=== PATIENT | female | born 1935 | race Caucasian/White ===

== ENCOUNTER → 2016-11-22 | Outpatient (CLI) | payer MEDICARE ==
[~2016-11-22] MED LIST: HYDR1TAB8 PO; blood pressure
--- NOTE | 2016-11-22 09:38 | Diagnostic Imaging Report ---
INDICATION: Screening. TECHNIQUE: Screening digital mammography was performed bilaterally with a Computer Aided Detection (CAD) system. COMPARISON: 11/20/2015, 10/31/2014, and 11/01/2013. FINDINGS: There is a moderate amount of residual fibroglandular tissue bilaterally. There is no dominant mass, spiculated lesion, or suspicious calcification identified. There are vascular calcifications. The skin, nipples, and axillae are unremarkable. IMPRESSION: Benign findings. ACR BI-RADS Category 2: Benign findings. Result letter will be mailed to the patient. Note: At least 10% of breast cancer is not imaged by mammography. Dictated by: Dictated on workstation # [id number]
== END ==
LOC: RAD 07:25
PROVIDERS: ATTEND Internal Medicine
DX: Z12.31 Encounter for screening mammogram for malignant neoplasm of breast (principal)
CPT/HCPCS: 77067

== ENCOUNTER → 2018-11-23 | Outpatient (CLI) | payer OTHER, MEDICARE ==
--- NOTE | 2018-11-24 08:02 | Diagnostic Imaging Report ---
Digital mammogram Bilateral screening with 3-D tomosynthesis and CAD The study was compared to the prior exams of 11/23/2017, and 11/20/2015. At this time there are no current complaints. The current study was also evaluated with a Computer Aided Detection (CAD) system. FINDINGS: The fibroglandular tissue in both breasts is heterogeneously dense. This does limit the sensitivity of this exam. Overall, there does not appear to have been any significant change when compared to the prior study. No primary or secondary sign of malignancy is noted. IMPRESSION: There is no radiographic evidence for malignancy. ACR BI-RADS Category 1: Negative. Result letter will be mailed to the patient. Note: At least 10% of breast cancer is not imaged by mammography. Dictated by: Dictated on workstation # [id number]
== END ==
LOC: RAD 09:17
PROVIDERS: ATTEND Internal Medicine
DX: Z12.31 Encounter for screening mammogram for malignant neoplasm of breast (principal)
CPT/HCPCS: 77067

== ENCOUNTER → 2019-12-11 | Outpatient (CLI) | payer OTHER, MEDICARE ==
--- NOTE | 2019-12-11 15:33 | Diagnostic Imaging Report ---
INDICATION: Routine screening. COMPARISON: 11/23/2018 and 11/23/2017. TECHNIQUE: 2D and 3D bilateral screening mammography was performed with CAD. FINDINGS: Both breasts are heterogeneously dense, limiting the sensitivity of mammography. No dominant mass or malignant appearing microcalcifications are seen. The axillae are unremarkable. IMPRESSION: No mammographic features suspicious for malignancy are identified. ACR BI-RADS Category 1: Negative. Result letter will be mailed to the patient. Note: At least 10% of breast cancer is not imaged by mammography. Dictated by: Dictated on workstation # [id number]
== END ==
LOC: RAD 10:50
PROVIDERS: ATTEND Internal Medicine
DX: Z12.31 Encounter for screening mammogram for malignant neoplasm of breast (principal)
CPT/HCPCS: 77063; 77067

== ENCOUNTER → 2020-12-31 | Outpatient (CLI) | payer OTHER, MEDICARE ==
--- NOTE | 2020-12-31 11:52 | Diagnostic Imaging Report ---
INDICATION: Routine screening. Comparison is made with prior mammogram 12/11/2019 and 11/23/2018. 2-D and 3-D bilateral screening mammography was performed with CAD. Both breast are heterogeneously dense, limiting the sensitivity of mammography. No mass or malignant-appearing microcalcifications are seen. Axillae are unremarkable. IMPRESSION: No mammographic features suspicious for malignancy are identified. BI-RADS Category 1 ACR BI-RADS Category 1: Negative. Result letter will be mailed to the patient. Note: At least 10% of breast cancer is not imaged by mammography. Dictated by: Dictated on workstation # [id number]
== END ==
LOC: RAD 08:29
PROVIDERS: ATTEND Nurse Practitioner Family
DX: Z12.31 Encounter for screening mammogram for malignant neoplasm of breast (principal)
CPT/HCPCS: 77063; 77067

== ENCOUNTER → 2021-07-01 | Outpatient (CLI) | payer OTHER, MEDICARE | LOC: CARD 14:31 | PROVIDERS: ATTEND Nurse Practitioner Family | DX: R07.9 Chest pain, unspecified (principal) | CPT/HCPCS: 93005 ==

== ENCOUNTER 2022-09-24 11:18 | Observation (INO) | payer OTHER, MEDICARE ==
[~2022-09-24] VITALS: Ht 160 cm; Wt 58.0 kg
[2022-09-24] MEDS ORDERED: NS IV 500 ML 500 ML IV ONE (11:45)
[2022-09-24 11:48] LABS: BASOPHILS % (AUTO) 1 % (0-10); EOSINOPHILS # (AUTO) 0.2 10^3/uL (0.0-0.3); EOSINOPHILS % (AUTO) 3 % (0-10); HEMATOCRIT 36 % (35-52); HEMOGLOBIN 12.2 g/dL (11.5-16.0); LYMPHOCYTES # (AUTO) 1.5 10^3/uL (1.0-4.0); LYMPHOCYTES % (AUTO) 31 % (12-44); MEAN CORPUSCULAR HEMOGLOBIN 28 pg (25-34); MEAN CORPUSCULAR HGB CONC 34 g/dL (32-36); MEAN CORPUSCULAR VOLUME 83 fL (80-99); MEAN PLATELET VOLUME 9.5 fL (9.0-12.2); MONOCYTES # (AUTO) 0.4 10^3/uL (0.0-1.0); MONOCYTES % (AUTO) 9 % (0-12); NEUTROPHILS # (AUTO) 2.7 10^3/uL (1.8-7.8); NEUTROPHILS % (AUTO) 56 % (42-75); PLATELET COUNT 228 10^3/uL (130-400); WHITE BLOOD COUNT 4.8 10^3/uL (4.3-11.0)
--- NOTE | 2022-09-24 11:56 | Diagnostic Imaging Report ---
Indication: Bradycardia and dizziness. No priors. Findings: The heart size and configuration within normal limits. 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 The mid lungs themselves clear. No edema, pneumonia, effusion or pneumothorax. Impression: No acute-appearing cardiopulmonary abnormality. Dictated by: Dictated on workstation # [id number]
[2022-09-24 11:57] LABS: ALBUMIN 4.1 GM/DL (3.2-4.5); CHLORIDE 107 MMOL/L (98-107); POTASSIUM 3.6 MMOL/L (3.6-5.0)
[2022-09-24 11:58] LABS: SODIUM 141 MMOL/L (135-145)
[2022-09-24 12:00] LABS: GLUCOSE 113 MG/DL (70-105); TOTAL PROTEIN 6.7 GM/DL (6.4-8.2)
[2022-09-24 12:01] LABS: CARBON DIOXIDE 21 MMOL/L (21-32)
--- NOTE | 2022-09-24 12:01 | ED Cardiac General ---
History of Present Illness General Chief Complaint: Cardiac/General Problems Stated Complaint: EKG REQUESTED | ABNORMAL RHYTHM Nursing Triage Note: PT AMBULATE TO ROOM 09 WITHOUT DIFFICULTY WITH C/O BRADYCARDIA. PT STATES SHE WAS WORKING BECAME DIZZY AND DIDN'T FEEL WELL SO A NURSE COWORKER CHECKED VITAL SIGNS AND PT'S PULSE WAS IN THE 20S. PT CONTACTED PCP AND WAS TOLD TO COME TO ED. Source: patient Exam Limitations: no limitations History of Present Illness Date Seen by Provider: Sep 24, 2022 Time Seen by Provider: 11:25 Initial Comments Here from Dr. Cgae's office with report of low heart rate. Patient states that she came to work this morning and apparently was dizzy and was noted to be pale. They checked her heart rate and apparently it was in the 20s. She decided to go to her doctor's office and went there and her heart rate was in the 40s and they referred her back to the emergency department due to concerns of low heart rate with symptoms and need for further evaluation. 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 She is interactive well today but does admit to the dizziness and low heart rate. Denies chest pain, breathing problems, nausea, vomiting, fever or upper respiratory symptoms. She is on beta-lupe for hypertension and did take that this morning. She has not had problems with this previously. Patient appears to be on irbesartan and hydrochlorothiazide and no findings of beta-lupe on med reconciliation. Timing/Duration: 1-3 hours, changing over time Severity: moderate Prior CP/Workup: no prior chest pain NTG SL [employer] DYNAM[employer] MANAGER ARCHITECT: No ASA po [employer] MANAGER ARCHITECT: No Associated Systoms: No Chest Pain, No Cough, No Fever/Chills, No Tanner sea/Vomiting, No Shortness of Air, No Weakness Allergies and Home Medications Allergies Coded Allergies: No Known Drug Allergies (Unverified , 03/10/10) Patient Home Medication List Home Medication List Reviewed: Yes Hydrocodone Bit/Ibuprofen (Vicoprofen 200-7.5 Mg Tab) 1 Each Tablet, 1 EACH PO Q6HR PRN Prescribed by: CHAKA HINSON on 11/05/12 1206 [blood pressure] , (Reported) Entered as Reported by: MARY NICE on 11/05/12 1055 Review of Systems Review of Systems Constitutional: see HPI; No chills, No fever EENTM: No Symptoms Reported Respiratory: Denies Cough, Denies Shortness of Air Cardiovascular: Denies Chest Pain, Denies Edema; Irregular Heart Rate Gastrointestinal: Denies Abdominal Pain, Denies Nausea Genitourinary: No Symptoms Reported Musculoskeletal: no symptoms reported Psychiatric/Neurological: See HPI, Other (Dizziness) Past Vnybcyn-Kboetg-Bwpdhn Hx Patient Social History Tobacco Use?: No Smoking Status: Never a Smoker Smokeless Tobacco Frequency: Never a User Use of E-Cig and/or Vaping dev: No Use of E-Cig and/or Vaping Gustavo: Never a User Substance use?: No Alcohol Use?: Yes Alcohol Frequency: Once in a while Pt feels they are or have been: No Past Medical History Surgeries: Yes Eye Surgery Respiratory: No Cardiac: Yes Hypertension Genitourinary: Yes Kidney Stones Family Medical History Reviewed Nursing Family Hx Heart Disease Physical Exam Vital Signs Vital Signs - First Documented 09/24/22 11:24 Temp 36.8 Pulse 58 Resp 16 B/P (MAP) 147/52 (83) O2 Delivery Room Air Capillary Refill : Less Than 3 Seconds Height, Weight, BMI Height: '" Weight: 138lbs. oz. 62.573654nx; 22.00 BMI Method:Stated General Appearance: No Apparent Distress, WD/WN HEENT: PERRL/EOMI, Pharynx Normal Neck: Non Tender, Supple Respiratory: Lungs Clear, Normal Breath Sounds Cardiovascular: No Murmur, Bradycardia Gastrointestinal: Non Tender, Soft Extremity: Normal Range of Motion, Non Tender Neurologic/Psychiatric: Alert, Oriented x3 Skin: Normal Color, Warm/Dry Progress/Results/Core Measures Results/Orders Lab Results Laboratory Tests Test 09/24/22 11:40 Range/Units White Blood Count 4.8 4.3-11.0 10^3/uL Red Blood Count 4.39 3.80-5.11 10^6/uL Hemoglobin 12.2 11.5-16.0 g/dL Hematocrit 36 35-52 % Mean Corpuscular Volume 83 80-99 fL Mean Corpuscular Hemoglobin 28 25-34 pg Mean Corpuscular Hemoglobin Concent 34 32-36 g/dL Red Cell Distribution Width 13.6 10.0-14.5 % Platelet Count 228 130-400 10^3/uL Mean Platelet Volume 9.5 9.0-12.2 fL Immature Granulocyte % (Auto) 0 % Neutrophils (%) (Auto) 56 42-75 % Lymphocytes (%) (Auto) 31 12-44 % Monocytes (%) (Auto) 9 0-12 % Eosinophils (%) (Auto) 3 0-10 % Basophils (%) (Auto) 1 0-10 % Neutrophils # (Auto) 2.7 1.8-7.8 10^3/uL Lymphocytes # (Auto) 1.5 1.0-4.0 10^3/uL Monocytes # (Auto) 0.4 0.0-1.0 10^3/uL Eosinophils # (Auto) 0.2 0.0-0.3 10^3/uL Basophils # (Auto) 0.0 0.0-0.1 10^3/uL Immature Granulocyte # (Auto) 0.0 0.0-0.1 10^3/uL Sodium Level 141 135-145 MMOL/L Potassium Level 3.6 3.6-5.0 MMOL/L Chloride Level 107 98-107 MMOL/L Carbon Dioxide Level 21 21-32 MMOL/L Anion Gap 13 5-14 MMOL/L Blood Urea Nitrogen 37 H 7-18 MG/DL Creatinine 2.28 H 0.60-1.30 MG/DL Estimat Glomerular Filtration Rate 21 BUN/Creatinine Ratio 16 Glucose Level 113 H 70-105 MG/DL Calcium Level 10.0 8.5-10.1 MG/DL Corrected Calcium 9.9 8.5-10.1 MG/DL Magnesium Level 1.8 1.6-2.4 MG/DL Total Bilirubin 0.5 0.1-1.0 MG/DL Aspartate Amino Transf (AST/SGOT) 12 5-34 U/L Alanine Aminotransferase (ALT/SGPT) 12 0-55 U/L Alkaline Phosphatase 147 H 40-136 U/L Troponin I < 0.028 <0.028 NG/ML Total Protein 6.7 6.4-8.2 GM/DL Albumin 4.1 3.2-4.5 GM/DL TSH [place] Testing 1.47 0.35-4.94 UIU/ML My Orders Orders - ARGENTINA DOWNS MD Ekg Tracing (09/24/22 11:23) Cbc With Automated Diff (09/24/22 11:35) Comprehensive Metabolic Panel (09/24/22 11:35) Magnesium (09/24/22 11:35) Thyroid Analyzer (09/24/22 11:35) Troponin I [place] (09/24/22 11:35) Ed Iv/Invasive Line Start (09/24/22 11:35) Monitor-Rhythm Ecg Trace Only (09/24/22 11:35) Ns Iv 500 Ml (Sodium Chloride 0.9%) (09/24/22 11:45) Chest 1 View, Ap/Pa Only (09/24/22 11:35) Code/Resuscitation (09/24/22 13:22) Ed Admission (Communication) (09/24/22 13:22) Medications Given in ED Current Medications Medications Dose Ordered Sig/Dagoberto Route Start Time Stop Time Status Last Admin Dose Admin Sodium Chloride 500 ml @ 0 mls/hr Q0M ONCE IV 09/24/22 11:45 09/24/22 11:46 DC 09/24/22 11:44 500 MLS/HR Vital Signs/I&O 09/24/22 11:24 Temp 36.8 Pulse 58 Resp 16 B/P (MAP) 147/52 (83) O2 Delivery Room Air Blood Pressure Mean: 83 Progress Progress Note : Progress Note Seen and evaluated. IV, labs including CBC, CMP, troponin, thyroid study and magnesium ordered. EKG and chest x-ray ordered. Monitor patient. Differential diagnosis includes electrolyte abnormality, hormone dysfunction, cardiac arrhythmia, cardiac event 1216: Labs reviewed and CBC grossly normal. Chemistry shows creatinine of 2.28 and there is no historical reference for her. Otherwise chemistries are negative and troponin is negative. TSH is pending. Chest x-ray reviewed by me shows question of cardiomegaly without infiltrate or edema on my interpretation. I did speak with Dr. Cage, patient's primary care physician. While he was unable to look at the computer because of his location to determine if this is chronic, he does not remember the patient having any renal dysfunction previously. He does verify the irbesartan for hypertension as well as hydrochlorothiazide. Patient resting peacefully without distress and heart rate has been as low as 40 here. Monitor patient. 1252: I did discuss the case with Dr. Hidalgo, animal park code enforcement officer on-call and he will see the patient in the ER. 1315: Dr. Hidalgo has seen the patient and is recommending observation admission. I have already discussed the case with Dr. Bennett and she accepts patient for admission, observation status. 1325: I have verified CODE STATUS with the patient and she wishes to be full code. Findings concerns discussed with patient and family who agree. Initial ECG Impression Date: Sep 24, 2022 Initial ECG Impression Time: 11:28 Initial ECG Rate: 45 Initial ECG Rhythm: S.Gustavo Comment Sinus bradycardia with normal axis. LVH noted. No evidence of ST elevation KS. Interpreted by me. Diagnostic Imaging Diagonstic Imaging: Xray Plain Films/CT/US/NM/MRI: chest Comments [facility] [place], [place] NAME: RADHA PEREZ [facility] REC#: [id number] PT STATUS: REG ER : 1935 PHYSICIAN: ARGENTINA DOWNS MD ADMIT DATE: 09/24/22/ER Draft Date of Exam:09/24/22 CHEST 1 VIEW, AP/PA ONLY Indication: Bradycardia and dizziness. No priors. Findings: The heart size and configuration within normal limits. 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 The mid lungs themselves clear. No edema, pneumonia, effusion or pneumothorax. Impression: No acute-appearing cardiopulmonary abnormality. Dictated on workstation # [id number] Dict: 09/24/22 1153 Trans: 09/24/22 1156 CVB [id number] Interpreted by: RAMU BOONE Electronically signed by: Departure Communication (Admissions) Time/Spoke to Admitting Phy: 12:52 Time/Spoke to Consulting Phy: 12:52 Impression Primary Impression: Symptomatic bradycardia Disposition: ADMITTED INPATIENT Condition: Stable Admissions Decision to Admit Reason: Admit from ER (General) Decision to Admit/Date: Sep 24, 2022 Time/Decision to Admit Time: 13:15 Departure-Patient Inst. Referrals: OBINNA CAGE MD (PCP/Family) Primary Care Physician ARGENTINA DOWNS MD Sep 24, 2022 12:01
[2022-09-24 12:02] LABS: BILIRUBIN,TOTAL 0.5 MG/DL (0.1-1.0)
[2022-09-24 12:03] LABS: ALKALINE PHOSPHATASE 147 U/L (40-136); CREATININE SERUM 2.28 MG/DL (0.60-1.30); GFR ESTIMATED 21
[2022-09-24 12:04] LABS: BUN/CREATININE RATIO 16
[2022-09-24 12:06] LABS: ALANINE AMINOTRANSFERASE 12 U/L (0-55)
[2022-09-24 12:07] LABS: MAGNESIUM 1.8 MG/DL (1.6-2.4)
[2022-09-24 12:27] LABS: TSH (THYROID ANALYZER) 1.47 UIU/ML (0.35-4.94)
[2022-09-24 13:38] VITALS: BP 165/84
[2022-09-24] MEDS ORDERED: CALCIUM CARBONATE 500 MG (TUMS) TAB.CHEW PO PRN (13:45)
[2022-09-24] MEDS ORDERED: MELATONIN 3 MG TABLET PO PRN (13:45)
[2022-09-24] MEDS ORDERED: BISACODYL 10 MG SUPP (DULCOLAX) PR PRN (13:45)
[2022-09-24] MEDS ORDERED: ONDANSETRON 4 MG/2 ML (SDV) Z0FRAN IV PRN (13:45)
[2022-09-24] MEDS ORDERED: polyethylene glycoL POWDER 17 GM (MIRALAX) PACK PO PRN (13:45)
[2022-09-24] MEDS ORDERED: ANTACID SUSP 30 ML UDC (MYLANTA) PO PRN (13:45)
--- NOTE | 2022-09-24 14:01 | Physical Therapy Progress Note ---
Therapy Progress Note Patient declined skilled PT and is currently at independent PLOF with all gross motor skills and does not require skilled PT intervention at this time. RN present and confirms. ADAIR ROBERTO PT Sep 24, 2022 14:01
[2022-09-24 15:07] VITALS: BP 165/84
--- NOTE | 2022-09-24 15:18 | History & Physical-Hospitalist ---
History of Present Illness HPI/Chief Complaint Patient is an 87-year-old female with past medical history of hypertension who presented to the emergency department due to bradycardia. 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 I had nurse checked her vitals and found that her heart rate was in the 20s. They recommended that she go to the emergency department but she went to her primary care office instead. They are her heart rate remained low but was in the 40s and they again referred her to the emergency department. On arrival to the emergency department she has consistently had a heart rate in the 40s and 50s which she says is quite abnormal for her. She does take 2 blood pressure medications but is on no rate controlling medicines. She did take her blood pressure medicines this morning. After conversation with patient and family decision was made to admit for observation and evaluation for possible pacemaker need. Pt denies any symptoms at this time and is feeling well now. Source: patient, family Date Seen 09/24/22 Time Seen by a Provider: 15:18 Attending Physician Abdoul Cage MD PCP Admitting Physician: Maria Elena Bennett MD Attending Physician: Maria Elena Bennett MD Referring Physician Date of Admission Sep 24, 2022 at 13:35 Home Medications & Allergies Home Medications Reviewed patient Home Medication Reconciliation performed by pharmacy medication reconciliations senior games technician and/or nursing. Patients Allergies have been reviewed. Allergies Allergies Coded Allergies No Known Drug Allergies (Bgunfkjglb50/14/10) Past Wjajrck-Kelsrd-Qbwbmb Hx Patient Social History Employed/Student: employed Tobacco Use?: No Smoking Status: Never a Smoker Smokeless Tobacco Frequency: Never a User Use of E-Cig and/or Vaping dev: No Use of E-Cig and/or Vaping Gustavo: Never a User Substance use?: No Alcohol Use?: No Alcohol Frequency: Once in a while Pt feels they are or have been: No Immunizations Up To Date Date of Pneumonia Vaccine: Oct 26, 2009 Current Status Advance Directives: No Communicates: Verbally Primary Language: Nepalese Preferred Spoken Language: Nepalese Is interpretation needed?: No Sensory deficits: Vision impairment Implanted or Applied Medical D: None Past Medical History Surgeries: Eye Surgery Hypertension Kidney Stones Family Medical History Reviewed Nursing Family Hx Heart Disease Review of Systems Constitutional: see HPI Physical Exam Physical Exam Vital Signs Vital Signs - First Documented 09/24/22 09/24/22 11:24 13:30 Temp 36.8 Pulse 58 Resp 16 B/P (MAP) 147/52 (83) Pulse Ox 97 O2 Delivery Room Air Capillary Refill : Less Than 3 Seconds Height, Weight, BMI Height: '" Weight: 138lbs. oz. 62.377664zf; 22.65 BMI Method:Stated General Appearance: No Apparent Distress, WD/WN Respiratory: Lungs Clear, No Respiratory Distress Cardiovascular: No Murmur, Bradycardia Gastrointestinal: Normal Bowel Sounds, Non Tender, Soft Neurologic/Psychiatric: Alert, Oriented x3 Results Results/Procedures Labs Laboratory Tests 09/24/22 11:40 Patient resulted labs reviewed. Imaging: Reviewed Imaging Report Imaging [facility], [place] NAME: RADHA PEREZ [facility] REC#: [id number] PT STATUS: REG ER : 1935 PHYSICIAN: ARGENTINA DOWNS MD ADMIT DATE: 09/24/22/ER Draft Date of Exam:09/24/22 CHEST 1 VIEW, AP/PA ONLY Indication: Bradycardia and dizziness. No priors. Findings: The heart size and configuration within normal limits. 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 The mid lungs themselves clear. No edema, pneumonia, effusion or pneumothorax. Impression: No acute-appearing cardiopulmonary abnormality. Dictated on workstation # [id number] Dict: 09/24/22 1153 Trans: 09/24/22 1156 CVB [id number] Interpreted by: RAMU BOONE Electronically signed by: Assessment/Plan Admission Diagnosis Bradycardia Admission Status: Observation Assessment and Plan Bradycardia HTN New onset bradycardia Telemetry Cardiology consulted, appreciate recs Not on any rate controlling meds ARMANDO Creatinine elevated No baseline available but per report not history of ARMANDO Continue IVF DVT ppx: Ambulation Diagnosis/Problems Diagnosis/Problems (1) ARMANDO (acute kidney injury) (2) Hypertension (3) Symptomatic bradycardia Clinical Quality Measures AMI/AHF: ASA po Prior to arrival: MARIA ELENA Santana MD Sep 24, 2022 15:18
--- NOTE | 2022-09-24 15:19 | Consultation-Cardiology ---
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 This morning she was dizzy, weak and noted to be pale. She states that her heart rate was checked and noted to be in the 20s this morning, but this cannot be confirmed. She subsequently decided to go to her doctor's office and went there and her heart rate was in the 40s and they referred her back to the emergency department for further evaluation. In the emergency room her rates initially were at 40/min, with sinus bradycardia documented on telemetry. Her EKG upon arrival has been reviewed by me and shows sinus bradycardia at 45 bpm, with unremarkable QRS complexes, no first-degree AV block or ST or T wave abnormalities. She specifically denies shortness of breath, or anginal chest pain. Patient is on irbesartan and hydrochlorothiazide for hypertension at home. She appears not to be on any negative chronotropic drug including beta-blockers or calcium channel blockers at home. I have called inpatient pharmacy and they to have found no evidence of beta-blockers or calcium channel blockers on her home medication list No nausea vomiting syncope dyspnea or chest pain consistent with anginal chest pain Family history unremarkable except for 2 sisters who needed permanent pacemakers versus ICDs in their mid to late 80s Review of Systems-Cardiology All Other Systems Reviewed Negative Unless Noted: Yes INF-Fvzooa-Zkxrzt Hx Patient Social History Smoking Status: Never a Smoker Alcohol Use?: No Pt feels they are or have been: No Immunizations Up To Date Date of Pneumonia Vaccine: Oct 26, 2009 Past Medical History PMH As described under Assessment. Allergies and Home Medications Allergies Coded Allergies: No Known Drug Allergies (Unverified , 03/10/10) Patient Home Medication List Home Medication List Reviewed: Yes Hydrocodone Bit/Ibuprofen (Vicoprofen 200-7.5 Mg Tab) 1 Each Tablet, 1 EACH PO Q6HR PRN Prescribed by: CHAKA HINSON on 11/05/12 1206 [blood pressure] , (Reported) Entered as Reported by: MARY NICE on 11/05/12 1055 Exam Vital Signs Vital Signs Date Time Temp Pulse Resp B/P (MAP) Pulse Ox O2 Delivery O2 Flow Rate FiO2 09/24/22 15:29 37 09/24/22 15:07 36.6 95 09/24/22 13:38 18 165/84 (111) Room Air Physical Exam Comfortable and asymptomatic at the time of my examination Chest clear to auscultation S1 and S2 regular. No murmur S3 or S4 No jugular venous distention No lower extremity edema Neurological examination nonfocal Labs Laboratory Tests Test 09/24/22 11:40 Range/Units White Blood Count 4.8 4.3-11.0 10^3/uL Red Blood Count 4.39 3.80-5.11 10^6/uL Hemoglobin 12.2 11.5-16.0 g/dL Hematocrit 36 35-52 % Mean Corpuscular Volume 83 80-99 fL Mean Corpuscular Hemoglobin 28 25-34 pg Mean Corpuscular Hemoglobin Concent 34 32-36 g/dL Red Cell Distribution Width 13.6 10.0-14.5 % Platelet Count 228 130-400 10^3/uL Mean Platelet Volume 9.5 9.0-12.2 fL Immature Granulocyte % (Auto) 0 % Neutrophils (%) (Auto) 56 42-75 % Lymphocytes (%) (Auto) 31 12-44 % Monocytes (%) (Auto) 9 0-12 % Eosinophils (%) (Auto) 3 0-10 % Basophils (%) (Auto) 1 0-10 % Neutrophils # (Auto) 2.7 1.8-7.8 10^3/uL Lymphocytes # (Auto) 1.5 1.0-4.0 10^3/uL Monocytes # (Auto) 0.4 0.0-1.0 10^3/uL Eosinophils # (Auto) 0.2 0.0-0.3 10^3/uL Basophils # (Auto) 0.0 0.0-0.1 10^3/uL Immature Granulocyte # (Auto) 0.0 0.0-0.1 10^3/uL Sodium Level 141 135-145 MMOL/L Potassium Level 3.6 3.6-5.0 MMOL/L Chloride Level 107 98-107 MMOL/L Carbon Dioxide Level 21 21-32 MMOL/L Anion Gap 13 5-14 MMOL/L Blood Urea Nitrogen 37 H 7-18 MG/DL Creatinine 2.28 H 0.60-1.30 MG/DL Estimat Glomerular Filtration Rate 21 BUN/Creatinine Ratio 16 Glucose Level 113 H 70-105 MG/DL Calcium Level 10.0 8.5-10.1 MG/DL Corrected Calcium 9.9 8.5-10.1 MG/DL Magnesium Level 1.8 1.6-2.4 MG/DL Total Bilirubin 0.5 0.1-1.0 MG/DL Aspartate Amino Transf (AST/SGOT) 12 5-34 U/L Alanine Aminotransferase (ALT/SGPT) 12 0-55 U/L Alkaline Phosphatase 147 H 40-136 U/L Troponin I < 0.028 <0.028 NG/ML Total Protein 6.7 6.4-8.2 GM/DL Albumin 4.1 3.2-4.5 GM/DL TSH [place] Testing 1.47 0.35-4.94 UIU/ML Radiology Chest x-ray self reviewed. Normal cardiopulmonary silhouette as per my interpretation EKG self reviewed. As described above. Sinus bradycardia without evidence of AV block or QRS prolongation Telemetry. Sinus bradycardia. Intermittently, frequent premature atrial contractions noted ECG Impression ECG Initial ECG Impression Date: Sep 24, 2022 A/P-Cardiology Assessment/Admission Diagnosis 1. Symptomatic sinus bradycardia with weakness/dizziness. TSH normal. Plan overnight observation and transthoracic echocardiography. If bradycardia persists, patient will need dual-chamber permanent pacemaker 2. Hypertension. Controlled. Patient is on irbesartan and hydrochlorothiazide at home. Not on any negative chronotropic agents as per my assessment ALF PARADA MD Sep 24, 2022 15:19
[2022-09-24] MEDS: NS IV 1000 ML 1,000 ML IV SCH (15:25)
[2022-09-24] MEDS ORDERED: IBUP-2185 PO (15:48)
[2022-09-24] MEDS ORDERED: IRBE150T23 PO (15:48)
[2022-09-24] MEDS ORDERED: HYDR25TA4 PO (15:48)
[2022-09-24 16:57] VITALS: BP 128/54
[2022-09-24 19:23] VITALS: BP 130/63
[2022-09-24] MEDS: RT-ALBUTEROL SULF 2.5 MG/3 ML PRE-MIX VIAL INH SCH ×2 (20:06→21:36)
[2022-09-24 23:12] VITALS: BP 115/43
[2022-09-25] MEDS: NS IV 1000 ML 1,000 ML IV SCH ×2 (00:30→10:03)
[2022-09-25 03:55] VITALS: BP 129/46
[2022-09-25 05:39] LABS: HEMATOCRIT 33 % (35-52); HEMOGLOBIN 10.7 g/dL (11.5-16.0); MEAN CORPUSCULAR HEMOGLOBIN 27 pg (25-34); MEAN CORPUSCULAR HGB CONC 33 g/dL (32-36); MEAN CORPUSCULAR VOLUME 82 fL (80-99); MEAN PLATELET VOLUME 9.7 fL (9.0-12.2); PLATELET COUNT 166 10^3/uL (130-400); WHITE BLOOD COUNT 3.4 10^3/uL (4.3-11.0)
[2022-09-25 05:48] LABS: CALCIUM 9.3 MG/DL (8.5-10.1)
[2022-09-25 05:52] LABS: CREATININE SERUM 1.91 MG/DL (0.60-1.30)
[2022-09-25] MEDS: RT-ALBUTEROL SULF 2.5 MG/3 ML PRE-MIX VIAL INH SCH (07:08)
[2022-09-25 08:03] VITALS: BP 122/54
[2022-09-25] MEDS ORDERED: RT-ALBUTEROL SULF 2.5 MG/3 ML PRE-MIX VIAL INH PRN (10:45)
--- NOTE | 2022-09-25 11:48 | Discharge Inst-Simple/Standard ---
Discharge Inst-Standard Discharge Medications New, Converted or Re-Newed RX: Transmitted to Pharmacy Patient Instructions/Follow Up Plan of Care/Instructions/FU: Please continue to take your medications as written. Please follow up with your primary care doctor to follow up this hospital stay. Activity as Tolerated: Yes Discharge Diet: Low Sodium Diet Return to The Hospital For: Chest pain, shortness of breath, fever, weakness, if you feel you are getting worse. MARIA ELENA DENISE MD Sep 25, 2022 11:48
[2022-09-25 12:17] VITALS: BP 120/62
--- NOTE | 2022-09-25 12:17 | Progress Note - Cardiology ---
Cardiology SOAP Progress Note Subjective: No cp or palp or syncope or shortness of breath States had dizziness on the day of admission (no syncope) Denies n/v/d Denies swelling Objective: I&O/Vital Signs 09/25/22 09/25/22 09/25/22 09/25/22 01:00 03:55 07:00 08:00 Temp 36.6 Pulse 63 65 62 Resp 20 B/P (MAP) 129/46 (73) Pulse Ox 94 95 O2 Delivery Room Air Room Air 09/25/22 08:03 Temp 36.4 Pulse 57 Resp 18 B/P (MAP) 122/54 (76) Pulse Ox 95 O2 Delivery Room Air 09/25/22 00:00 Intake Total 200 ml Balance 200 ml Weight (Pounds): 138 Weight (Calculated Kilograms): 62.199392 Constitutional: AAO x 3, well-developed, well-nourished Respiratory: No accessory muscle use; chest expansion is symmetric, chest is bilaterally symmetric, other (good, bilat air entry) Cardiovascular: regular rate-rhythm, S1 and S2, systolic murmur (soft LEOBARDO at card base) Gastrointestional: No tender; soft; No guarding, No rebound; audible bowel sounds Extremities: No clubbing, No cyanosis, No significant edema Neurologic/Psychiatric: oriented x 3, other (moves all limbs equally) Skin: normal color, warm/dry; No cyanosis, No rash on exposed areas, No ulcerations on exposed areas Results/Procedures: Labs Laboratory Tests 09/25/22 04:58: White Blood Count 3.4L, Red Blood Count 3.97, Hemoglobin 10.7L, Hematocrit 33L, Mean Corpuscular Volume 82, Mean Corpuscular Hemoglobin 27, Mean Corpuscular Hemoglobin Concent 33, Red Cell Distribution Width 13.6, Platelet Count 166, Mean Platelet Volume 9.7, Sodium Level 142, Potassium Level 4.0, Chloride Level 114H, Carbon Dioxide Level 19L, Anion Gap 9, Blood Urea Nitrogen 35H, Creatinine 1.91H, Estimat Glomerular Filtration Rate 25, BUN/Creatinine Ratio 18, Glucose Level 94, Calcium Level 9.3 Laboratory Tests 09/24/22 11:40 09/25/22 04:58 A/P: Assessment: Sinus jose daniel w/o syncope Dizziness of unclear etiology (none currently) Hypertension, controlled Renal insuff of undetermined age and etiology - probably has an acute component due to diuretic therapy Tele: sinus jose daniel or low normal heart rate; heart rate in the mid thirties to the mid forties during sleep; brief Wenckebach during sleep Plan: * No distinct indication for pacemaker at this time. She wishes to go home * Echo today * Zio AT patch * Close outpatient f/u * Advised to return to ER for recurrence of symptoms or new symptoms * Discontinue diuretics Clinical Quality Measures AMI/AHF: ASA po Prior to arrival: LOYAD aSlinas MD FACP FAC CCDS Sep 25, 2022 12:17
[2022-09-25 13:00] VITALS: BP 120/62
--- NOTE | 2022-09-25 13:10 | Discharge Summary ---
Diagnosis/Chief Complaint Date of Admission Sep 24, 2022 at 13:35 Date of Discharge Discharge Date: Sep 25, 2022 Admission Diagnosis Bradycardia Primary Care Obinna Nicolas MD Discharge Diagnosis (1) ARMANDO (acute kidney injury) (2) Hypertension (3) Symptomatic bradycardia Discharge Summary Discharge Physical Exam Allergies: Coded Allergies: No Known Drug Allergies (Unverified , 09/25/22) Vitals & I&Os Vital Signs Date Time Temp Pulse Resp B/P (MAP) Pulse Ox O2 Delivery O2 Flow Rate FiO2 09/25/22 13:00 36.5 60 18 120/62 97 Room Air General Appearance: No Apparent Distress, WD/WN Cardiovascular: Regular Rate, Rhythm, No Murmur Neurologic/Psychiatric: Alert, Oriented x3 Hospital Course She was admitted to the hospital secondary to bradycardia. She was monitored overnight on telemetry and cardiology was consulted. Echo was done which revealed an EF of 65 to 70%. Heart rate improved to the 50s and 60s and patient was asymptomatic with this. Cardiology placed a Zio patch and recommended close outpatient follow-up. Patient also indicated for hydration practices and was encouraged to drink more water as she did have an elevated creatinine on arrival as well. He was discharged home to follow-up with cardiology as stated above and with her primary care physician Dr. Nicolas. I did stop her hydrochlorothiazide on this admission. Labs (last 24 hrs) Patient resulted labs reviewed. Imaging: Reviewed Imaging Report Discussion & Recommendations Discharge Planning: >30 minutes discharge planning Discharge Home Medications: Active Scripts Active Reported Ibuprofen 200 Mg Capsule 400 Mg PO Q8H PRN Irbesartan 150 Mg Tablet 150 Mg PO DAILY Instructions to patient/family Please see electronic discharge instructions given to patient. Clinical Quality Measures AMI/AHF: ASA po Prior to arrival: No Copy Copies To 1: OBINNA NICOLAS MD, KATELYN M MD Sep 25, 2022 13:10
== END 2022-09-25 13:00 | disposition home or self-care (01) ==
LOC: EDUNIT# 11:18 → ER 11:22 → 4TH 13:35
PROVIDERS: ADMIT Family Medicine; ATTEND Family Medicine
DX: N17.9 Acute kidney failure, unspecified (principal); I10 Essential (primary) hypertension; R00.1 Bradycardia, unspecified; R42 Dizziness and giddiness; Z79.899 Other long term (current) drug therapy
CPT/HCPCS: 71045; 80048; 80053; 83735; 84443; 84484; 85025; 85027; 93041; 94640; 99284; C8929; 36415; 93005; 93306; 96361

== ENCOUNTER → 2022-09-25 | Outpatient (CLI) | payer OTHER, MEDICARE ==
[~2022-09-25] MED LIST changes: +AMLO-250 PO; +ASPI-999 PO; +ATOR40TA70 PO; +HYDR25TA4 PO; +IBUP-2185 PO; +IRBE150T23 PO
== END ==
LOC: CARD 13:16
PROVIDERS: ATTEND Internal Medicine Cardiovascular Disease
DX: I47.20 Ventricular tachycardia, unspecified (principal)
CPT/HCPCS: 93246

== ENCOUNTER 2022-11-02 10:40 | Day surgery (SDC) | payer OTHER, MEDICARE ==
[2022-11-02] VITALS (16 sets, daily range): BP systolic 148–193; BP diastolic 59–85
[~2022-11-02] VITALS: Ht 167.6 cm; Wt 56.7 kg
[~2022-11-02 10:40] MED LIST changes: -AMLO-250 PO; -ASPI-999 PO; -ATOR40TA70 PO
[2022-11-02] MEDS ORDERED: LIDOCAINE 1% INJ 20 ML VIAL ONE (10:57)
[2022-11-02] MEDS ORDERED: HEParin (CATH LAB) 2,000 ML IV ONE (10:57)
[2022-11-02] MEDS ORDERED: NS IV 1000 ML 1,000 ML ONE (10:57)
[2022-11-02] MEDS ORDERED: NS IV 1000 ML 1,000 ML IV SCH ×2 (11:00→14:00)
[2022-11-02 11:18] LABS: HEMATOCRIT 38 % (35-52); HEMOGLOBIN 12.7 g/dL (11.5-16.0); MEAN CORPUSCULAR HEMOGLOBIN 28 pg (25-34); MEAN CORPUSCULAR HGB CONC 33 g/dL (32-36); MEAN CORPUSCULAR VOLUME 83 fL (80-99); MEAN PLATELET VOLUME 9.3 fL (9.0-12.2); PLATELET COUNT 188 10^3/uL (130-400); WHITE BLOOD COUNT 3.2 10^3/uL (4.3-11.0)
[2022-11-02] MEDS ORDERED: ATOR40TA70 PO (11:27)
[2022-11-02] MEDS ORDERED: ASPI-999 PO (11:27)
[2022-11-02] MEDS ORDERED: AMLO-250 PO (11:27)
[2022-11-02 11:30] LABS: PROTHROMBIN TIME PATIENT 13.4 SEC (12.2-14.7)
[2022-11-02 11:40] LABS: ALBUMIN 4.2 GM/DL (3.2-4.5); BILIRUBIN,TOTAL 0.8 MG/DL (0.1-1.0); CALCIUM 10.3 MG/DL (8.5-10.1); CREATININE SERUM 1.32 MG/DL (0.60-1.30); POTASSIUM 3.6 MMOL/L (3.6-5.0); TOTAL PROTEIN 6.7 GM/DL (6.4-8.2)
[2022-11-02] MEDS ORDERED: NITRO DRIP 25000 MCG/D5W 250 ML IV ONE (12:45)
[2022-11-02] MEDS ORDERED: fentaNYL INJECTION 100 MCG/2 ML VIAL ONE (12:45)
[2022-11-02] MEDS ORDERED: MIDAZOLAM 5 MG/5 ML (VERSED) VIAL ONE (12:45)
[2022-11-02] MEDS ORDERED: VERAPAMIL 5 MG/2 ML (CALAN) VIAL IV ONE (12:45)
[2022-11-02] MEDS ORDERED: HEParin 1000 UNIT/ML (10ML VIAL) FOR BOLUS ONE (12:46)
--- NOTE | 2022-11-02 13:42 | Cardiac Procedure Note-CS/ASA ---
Pre-Procedure Note Pre-Op Procedure Note Date of Available H&P: Oct 29, 2022 Date H&P Reviewed: Nov 02, 2022 Time H&P Reviewed: 12:15 History & Physical: H&P Reviewed, No changes noted Moderate Sedation PreProcedure ASA Score 3 Airway Lungs Heart ASA score ASA 1: a normal healthy patient ASA 2: a patient with a mild systemic disease (mid diabetes, controlled hypertension, obesity ASA 3: a patient with a severe systemic disease that limits activity (angina, COPD, prior Myocardial infarction) ASA 4: a patient with an incapacitating disease that is a constant threat to life (CHF, renal failure) ASA 5: a moribund patient not expected to survive 24 hrs. (ruptured aneurysm) ASA 6: a declared brain- patient whose organs are being harvested. For emergent operations, add the letter E after the classification Mallampati Classification Grade 1 Sedation Plan Analgesia, Amnesia, Plan communicated to team members The patient is an appropriate candidate to undergo the planned procedure, sedation, and anesthesia. The patient immediately re-assessed prior to indication. LOYDA BORREGO MD FACP FAC CCDS Nov 02, 2022 13:42
--- NOTE | 2022-11-02 13:50 | Cardiac Cath Report ---
CARDIAC CATHETERIZATION DATE OF PROCEDURE: 11-02-22 INDICATION: NSVT HISTORY: The patient is a 87 year old female with NSVT on Zio monitoring PROCEDURES PERFORMED: 1. Cor angio 2. LHC 3. LV angio PROCEDURE DESCRIPTION: After informed consent and in the fasting state, left heart catheterization was performed through the R radial artery utilizing a 6 [place] system by percutaneous approach. Angled J glide wire use to cross R brachiocephalic tortuosity. 6F TIG for LCA. 5F JR4 for RCA. 5F pigtail for LHC and LV angio. All catheters were exchanged over a guidewire. HEMODYNAMICS: LVEDP 18 mmHg. No significant pressure gradient on pullback across the aortic valve CORONARY ANGIOGRAPHY: Left main coronary artery: Ok Left anterior descending coronary artery: 80% prox and 90% mid-vessel; 80% prox D1 Left circumflex coronary artery: Non-dominant with 80% prox and mid-vessel Right coronary artery: 80% prox and 90% mid-vessel LV ANGIOGRAPHY JUSTICE projection: LVEF approx 60%, no wall motion abnormality in this view IMPRESSION: 1. Multivessel CAD (see details above) 2. LVEDP 18 mmHg 3. LVEF 60% PLAN CABG vs high-risk PCI with surgical back up. Spoke with Dr Cates at [facility]. Patient considering options LOYDA BORREGO MD FACP FAC CCDS Nov 02, 2022 13:50
[2022-11-02] MEDS ORDERED: ACETAMINOPHEN 325 MG TABLET PO PRN (14:00)
[2022-11-02] MEDS ORDERED: PATIENT MAY USE OWN MEDS, ALL PO SCH (14:00)
[2022-11-03] MEDS ORDERED: VALSARTAN 80 MG (DIOVAN) TAB PO SCH (09:00)
[2022-11-03] MEDS ORDERED: IRBESARTAN 150 MG TAB PO SCH (09:00)
[2022-11-03] MEDS ORDERED: amLODIPine 5 MG TABLET PO SCH (09:00)
[2022-11-03] MEDS ORDERED: ASPIRIN 81 MG CHEWABLE TABLET PO SCH (09:00)
[2022-11-03] MEDS ORDERED: NON-FORMULARY MEDICATION 1 EA EA (Irbesartan 150 MG) PO SCH (09:00)
== END 2022-11-02 21:00 | disposition critical access hospital (66) ==
LOC: CATH 10:40 → ICU 14:10 → CATH 21:00
PROVIDERS: ATTEND Internal Medicine Cardiovascular Disease
DX: I25.10 Atherosclerotic heart disease of native coronary artery without angina pectoris (principal); I47.1 Supraventricular tachycardia; I49.5 Sick sinus syndrome; N28.9 Disorder of kidney and ureter, unspecified; I47.20 Ventricular tachycardia, unspecified; I12.9 Hypertensive chronic kidney disease with stage 1 through stage 4 chronic kidney disease, or unspecified chronic kidney disease; N18.4 Chronic kidney disease, stage 4 (severe); E78.2 Mixed hyperlipidemia; Z79.82 Long term (current) use of aspirin; Z79.899 Other long term (current) drug therapy
CPT/HCPCS: 80053; 80061; 85027; 85610; 85730; 87081; 93005; 93458; C1769; C1894; 36415

== ENCOUNTER 2022-11-26 22:13 | Emergency (ER) | payer OTHER, MEDICARE ==
[~2022-11-26] VITALS: Ht 160 cm; Wt 54.0 kg
[~2022-11-26 22:13] MED LIST changes: +AMLO-250 PO; +ASPI-999 PO; +ATOR40TA70 PO
[2022-11-26] MEDS ORDERED: hydrALAZINE INJECTION 20 MG/ML VIAL IV STA (22:25)
--- NOTE | 2022-11-26 22:26 | ED Headache ---
General Chief Complaint: Head/Cervical Problems Stated Complaint: HEAD PAIN Source: patient Exam Limitations: no limitations History of Present Illness Date Seen by Provider: Nov 26, 2022 Time Seen by Provider: 22:15 Initial Comments 87-year-old female presents to the emergency department today for severe headache. Symptoms started yesterday as sinus pressure in her left malar region and progressed to a headache. She states is the worst headache she has ever had. She is on prasugrel. On 11/02 she had a heart catheterization showing diffuse coronary artery disease the patient is reportedly considering her options for CABG versus high risk PCI with surgical backup. 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 She denies any fevers chills cough chest pain abdominal pain or changes in bowel or bladder habits. No changes in her vision. No upper or lower extremity weakness numbness or tingling. All other systems reviewed and negative except documented per HPI. Voice recognition software was used to help create this chart Allergies and Home Medications Allergies Coded Allergies: No Known Drug Allergies (Unverified , 09/25/22) Patient Home Medication List Home Medication List Reviewed: Yes Amlodipine Besylate (Amlodipine Besylate) 5 Mg Tablet, 5 MG PO DAILY, (Reported) Entered as Reported by: DANTE AVILA on 11/02/22 1127 Amoxicillin/Potassium Clav (Amox Tr-K Clv 875-125 mg Tab) 875 Mg-125 Mg Tablet, 1 EACH PO BID Prescribed by: DONA GONZALEZ MD on 11/27/22 0041 Aspirin (Aspirin) 81 Mg Tab.chew, 81 MG PO DAILY, (Reported) Entered as Reported by: DANTE AVILA on 11/02/22 1127 Atorvastatin Calcium (Atorvastatin Calcium) 40 Mg Tablet, 40 MG PO DAILY, (Reported) Entered as Reported by: ADNTE AVILA on 11/02/22 1127 Hydrocodone/Acetaminophen (Hydrocodone-Acetamin 5-325 mg) 5 Mg-325 Mg Tablet, 1 TAB PO Q4H PRN for PAIN-MODERATE (5-7) Prescribed by: DONA GONZALEZ MD on 11/27/22 0042 Ibuprofen (Ibuprofen) 200 Mg Capsule, 400 MG PO Q8H PRN for PAIN-MILD (1-4), (Reported) Entered as Reported by: DENIA CHAND on 09/24/22 1548 Irbesartan (Irbesartan) 150 Mg Tablet, 150 MG PO DAILY, (Reported) Entered as Reported by: DENIA CHAND on 09/24/22 1548 Review of Systems Review of Systems Constitutional: see HPI Past Ilwewtg-Ctdgfr-Dlehrr Hx Patient Social History Tobacco Use?: No Use of E-Cig and/or Vaping dev: No Substance use?: No Alcohol Use?: No Past Medical History Surgery/Hospitalization HX: NONE Surgeries: Yes Eye Surgery Respiratory: No Cardiac: Yes Hypertension Genitourinary: Yes Kidney Stones Family Medical History Heart Disease Physical Exam Vital Signs Vital Signs - First Documented 11/26/22 22:17 Temp 36.9 Pulse 87 Resp 18 B/P (MAP) 182/83 (116) Pulse Ox 98 O2 Delivery Room Air Capillary Refill : Height, Weight, BMI Height: '" Weight: 138lbs. oz. 62.337778ye; 20.18 BMI Method:Stated General Appearance: WD/WN, no apparent distress HEENT: PERRL/EOMI, normal ENT inspection, TMs normal, pharynx normal, other (Tenderness palpation left maxillary sinus region. No crepitus. No skin changes.) Neck: non-tender, full range of motion, supple, normal inspection Cardiovascular: regular rate, rhythm, no murmur Respiratory: chest non-tender, lungs clear, normal breath sounds, no respiratory distress, no accessory muscle use Gastrointestinal: normal bowel sounds, non tender, soft Extremities: normal range of motion, non-tender, normal inspection, no pedal edema, normal capillary refill Psychiatric: alert, oriented x 3 Crainal Nerves: normal hearing, normal speech, PERRL Coordination/Gait: normal finger to nose, normal gait Motor/Sensory: no motor deficit, no sensory deficit, no pronator drift Skin: normal color, warm/dry Progress/Results/Core Measures Results/Orders Lab Results Laboratory Tests Test 11/26/22 22:26 Range/Units White Blood Count 5.1 4.3-11.0 10^3/uL Red Blood Count 4.23 3.80-5.11 10^6/uL Hemoglobin 11.6 11.5-16.0 g/dL Hematocrit 35 35-52 % Mean Corpuscular Volume 83 80-99 fL Mean Corpuscular Hemoglobin 27 25-34 pg Mean Corpuscular Hemoglobin Concent 33 32-36 g/dL Red Cell Distribution Width 14.4 10.0-14.5 % Platelet Count 235 130-400 10^3/uL Mean Platelet Volume 8.8 L 9.0-12.2 fL Immature Granulocyte % (Auto) 0 % Neutrophils (%) (Auto) 57 42-75 % Lymphocytes (%) (Auto) 27 12-44 % Monocytes (%) (Auto) 11 0-12 % Eosinophils (%) (Auto) 4 0-10 % Basophils (%) (Auto) 1 0-10 % Neutrophils # (Auto) 2.9 1.8-7.8 10^3/uL Lymphocytes # (Auto) 1.4 1.0-4.0 10^3/uL Monocytes # (Auto) 0.5 0.0-1.0 10^3/uL Eosinophils # (Auto) 0.2 0.0-0.3 10^3/uL Basophils # (Auto) 0.0 0.0-0.1 10^3/uL Immature Granulocyte # (Auto) 0.0 0.0-0.1 10^3/uL Prothrombin Time 13.3 12.2-14.7 SEC INR Comment 1.0 0.8-1.4 Sodium Level 137 135-145 MMOL/L Potassium Level 3.6 3.6-5.0 MMOL/L Chloride Level 105 98-107 MMOL/L Carbon Dioxide Level 20 L 21-32 MMOL/L Anion Gap 12 5-14 MMOL/L Blood Urea Nitrogen 22 H 7-18 MG/DL Creatinine 1.58 H 0.60-1.30 MG/DL Estimat Glomerular Filtration Rate 32 BUN/Creatinine Ratio 14 Glucose Level 147 H 70-105 MG/DL Calcium Level 10.5 H 8.5-10.1 MG/DL My Orders Orders - DONA GONZALEZ DO Iv/Invasive Line Insertion .IV INSERT (11/26/22 22:23) Protime With Inr (11/26/22 22:23) Cbc With Automated Diff (11/26/22 22:23) Basic Metabolic Panel (11/26/22 22:23) Ct Head Wo (11/26/22 22:23) Diphenhydramine Injection (Diphenhydram (11/26/22 22:30) Ketorolac Injection (Ketorolac Injection (11/26/22 22:30) Hydralazine Injection (Hydralazine Injec (11/26/22 22:25) Fentanyl Injection (Fentanyl Injection (11/26/22 23:15) Diphenhydramine Injection (Diphenhydram (11/27/22 00:15) Hydrocodone/Apap 5/325 Tablet (Hydrocod (11/27/22 00:15) Amoxicillin/Clavulanate Tablet (Amoxicil (11/27/22 00:16) Medications Given in ED Current Medications Medications Dose Ordered Sig/Dagoberto Route Start Time Stop Time Status Last Admin Dose Admin Acetaminophen/ Hydrocodone Bitart 1 ea ONCE ONCE PO 11/27/22 00:15 11/27/22 00:16 DC 11/27/22 00:22 1 EA Diphenhydramine HCl 25 mg ONCE ONCE IVP 11/26/22 22:30 11/26/22 22:31 DC 11/26/22 22:32 25 MG Diphenhydramine HCl 25 mg ONCE ONCE IVP 11/27/22 00:15 11/27/22 00:16 DC 11/27/22 00:22 25 MG Fentanyl Citrate 50 mcg ONCE ONCE IVP 11/26/22 23:15 11/26/22 23:16 DC 11/26/22 23:23 50 MCG Ketorolac Tromethamine 15 mg ONCE ONCE IVP 11/26/22 22:30 11/26/22 22:31 DC 11/26/22 22:32 15 MG Vital Signs/I&O 11/26/22 22:17 Temp 36.9 Pulse 87 Resp 18 B/P (MAP) 182/83 (116) Pulse Ox 98 O2 Delivery Room Air Departure Communication (Admissions) Patient is hemodynamically stable no focal neurologic deficits. CT scan of her head is negative, obtain because she has worsening of her life. Pain is improved after Benadryl, Toradol. She did have a low-grade recurrence and we gave her some fentanyl. She is given p.o. hydrocodone prior to discharge. Lab work-up is unremarkable. I think she likely has sinusitis causing her symptoms. She is given a dose of Augmentin here prior to discharge and discharged with p.o. Augmentin as well. She be given hydrocodone to go home. Discharged in stable condition Impression Primary Impression: Sinusitis, acute maxillary Qualified Codes: J01.00 - Acute maxillary sinusitis, unspecified Additional Impression: Headache Qualified Codes: R51.9 - Headache, unspecified Disposition: 01 HOME, SELF-CARE Condition: Stable Departure-Patient Inst. Referrals: OBINNA NICOLAS MD (PCP/Family) Primary Care Physician Patient Instructions: Headache, Adult (DC) Add. Discharge Instructions: You were seen in the emergency department today for headache. I think he likely has sinusitis. Please take the antibiotics as prescribed until they are gone. Your first dose was given here in the emergency department. Use the pain medication as needed. Do not drive or make important decisions as this may make you drowsy. You may want to use stool softeners while taking it as well. I recommend you follow-up with your primary doctor in the next 48 to 72 hours should your symptoms persist. Return to the emergency department immediately for any changes in your vision or if your symptoms change in any way concerning to you. All discharge instructions reviewed with patient and/or family. Voiced understanding. Scripts Hydrocodone/Acetaminophen (Hydrocodone-Acetamin 5-325 mg) 5 Mg-325 Mg Tablet 1 TAB PO Q4H PRN for PAIN-MODERATE (5-7) for 3 Days, #12 TAB Prov: DONA GONZALEZ DO 11/27/22 Amoxicillin/Potassium Clav (Amox Tr-K Clv 875-125 mg Tab) 875 Mg-125 Mg Tablet 1 EACH PO BID for 10 Days, #20 TAB Prov: DONA GONZALEZ DO 11/27/22 DONA GONZALEZ DO Nov 26, 2022 22:25
[2022-11-26] MEDS ORDERED: diphenhydrAMINE INJ 50 MG/ML VIAL IVP ONE (22:30)
[2022-11-26] MEDS ORDERED: KETOROLAC INJ 15 MG/ML VIAL IVP ONE (22:30)
[2022-11-26 22:33] LABS: BASOPHILS % (AUTO) 1 % (0-10); EOSINOPHILS # (AUTO) 0.2 10^3/uL (0.0-0.3); EOSINOPHILS % (AUTO) 4 % (0-10); HEMATOCRIT 35 % (35-52); HEMOGLOBIN 11.6 g/dL (11.5-16.0); LYMPHOCYTES # (AUTO) 1.4 10^3/uL (1.0-4.0); LYMPHOCYTES % (AUTO) 27 % (12-44); MEAN CORPUSCULAR HEMOGLOBIN 27 pg (25-34); MEAN CORPUSCULAR HGB CONC 33 g/dL (32-36); MEAN CORPUSCULAR VOLUME 83 fL (80-99); MEAN PLATELET VOLUME 8.8 fL (9.0-12.2); MONOCYTES # (AUTO) 0.5 10^3/uL (0.0-1.0); MONOCYTES % (AUTO) 11 % (0-12); NEUTROPHILS # (AUTO) 2.9 10^3/uL (1.8-7.8); NEUTROPHILS % (AUTO) 57 % (42-75); PLATELET COUNT 235 10^3/uL (130-400); WHITE BLOOD COUNT 5.1 10^3/uL (4.3-11.0)
[2022-11-26 22:53] LABS: CALCIUM 10.5 MG/DL (8.5-10.1); CREATININE SERUM 1.58 MG/DL (0.60-1.30); POTASSIUM 3.6 MMOL/L (3.6-5.0)
[2022-11-26 22:58] LABS: PROTHROMBIN TIME PATIENT 13.3 SEC (12.2-14.7)
[2022-11-26] MEDS ORDERED: fentaNYL INJECTION 100 MCG/2 ML VIAL IVP ONE (23:15)
[2022-11-27] MEDS ORDERED: diphenhydrAMINE INJ 50 MG/ML VIAL IVP ONE (00:15)
[2022-11-27] MEDS ORDERED: HYDROcodone/ACETAMINOPHEN 5 MG/325 MG TABLET PO ONE (00:15)
[2022-11-27] MEDS ORDERED: AMOXICILLIN/Clavulanate 875 MG TABLET PO STA (00:16)
[2022-11-27] MEDS ORDERED: ACHD5005 PO (00:41)
[2022-11-27] MEDS ORDERED: AMOX1TAB12 PO (00:41)
[2022-11-27 01:02] VITALS: BP 155/83
--- NOTE | 2022-11-27 07:19 | Diagnostic Imaging Report ---
EXAMINATION: CT head without contrast. TECHNIQUE: Multiple contiguous axial images were obtained through the brain without the use of intravenous contrast. All CT scans use one or more of the following dose optimizing techniques: automated exposure control, MA and/or KvP adjustment based on patient size and exam type or iterative reconstruction. HISTORY: severe LA COMPARISON: None available. FINDINGS: The ventricles and sulci are normal. No abnormal attenuation of brain parenchyma is present. No acute intracranial hemorrhage or abnormal extra-axial fluid collections are present. No hyperdense vessel. The calvarium is intact. The mastoid air cells are clear. The visualized paranasal sinuses are clear. The orbits are normal. IMPRESSION: 1. No acute intracranial abnormality. 2. Agree with preliminary interpretation. Dictated by: Dictated on workstation # [id number]
== END 2022-11-27 01:02 | disposition home or self-care (01) ==
LOC: EDUNIT# 22:13 → ER 22:14
DX: J01.00 Acute maxillary sinusitis, unspecified (principal)
CPT/HCPCS: 36415; 70450; 80048; 85025; 85610

== ENCOUNTER 2022-11-29 09:52 | Emergency (ER) | payer OTHER, MEDICARE ==
[~2022-11-29] VITALS: Ht 167 cm; Wt 53.0 kg
[~2022-11-29 09:52] MED LIST changes: +ACHD5005 PO; +AMOX1TAB12 PO
[2022-11-29] MEDS ORDERED: fentaNYL INJECTION 100 MCG/2 ML VIAL IVP STA ×2 (11:10→13:19)
[2022-11-29] MEDS ORDERED: dexAMETHasone INJ 10 MG/ML 1 ML VIAL IV ONE (11:15)
[2022-11-29] MEDS ORDERED: NS IV 500 ML 500 ML IV ONE (11:15)
[2022-11-29 11:24] LABS: BASOPHILS % (AUTO) 1 % (0-10); EOSINOPHILS # (AUTO) 0.1 10^3/uL (0.0-0.3); EOSINOPHILS % (AUTO) 3 % (0-10); HEMATOCRIT 36 % (35-52); HEMOGLOBIN 11.5 g/dL (11.5-16.0); LYMPHOCYTES # (AUTO) 1.1 10^3/uL (1.0-4.0); LYMPHOCYTES % (AUTO) 29 % (12-44); MEAN CORPUSCULAR HEMOGLOBIN 27 pg (25-34); MEAN CORPUSCULAR HGB CONC 32 g/dL (32-36); MEAN CORPUSCULAR VOLUME 85 fL (80-99); MONOCYTES # (AUTO) 0.3 10^3/uL (0.0-1.0); MONOCYTES % (AUTO) 9 % (0-12); NEUTROPHILS # (AUTO) 2.2 10^3/uL (1.8-7.8); NEUTROPHILS % (AUTO) 59 % (42-75); PLATELET COUNT 181 10^3/uL (130-400); WHITE BLOOD COUNT 3.8 10^3/uL (4.3-11.0)
--- NOTE | 2022-11-29 11:33 | ED General ---
General Chief Complaint: Head/Cervical Problems Stated Complaint: HEAD / FACE PAIN Nursing Triage Note: ARRIVED VIA AMB WITH COMPLAINTS OF ON AND OFF SHARP PAIN TO LEFT SIDE OF FACE AND UNDER LEFT EYE. STATES SHE WAS SEEN HERE A COUPLE OF DAYS AGO AND DX WITH SINUS ISSUES. HAS BEEN TAKING AMOXICILLIN AND HYDROCODONE. Source of Information: Patient Exam Limitations: No Limitations History of Present Illness Date Seen by Provider: Nov 29, 2022 Time Seen by Provider: 11:04 Initial Comments Here with report of severe left-sided head pain that has been going on for the last several days. She was seen 3 days ago and had CT of her head and was diagnosed with possible sinusitis versus trigeminal neuralgia. She was started on antibiotics and hydrocodone. The hydrocodone helps a little bit with the pain but the pain is persisting. She denies vision problems or eye pain and seems to be more around the eye and on the left side of the face and ear. Denies any lesions in any of those areas. Denies nausea, vomiting, diarrhea, fever or chills. Timing/Duration: 4-5 Days Severity: Moderate, Severe Associated Systoms: No Chest Pain, No Fever/Chills; Headaches; No Nausea/Vomiting, No Shortness of Air, No Weakness Allergies and Home Medications Allergies Coded Allergies: No Known Drug Allergies (Unverified , 09/25/22) Patient Home Medication List Home Medication List Reviewed: Yes Amlodipine Besylate (Amlodipine Besylate) 5 Mg Tablet, 5 MG PO DAILY, (Reported) Entered as Reported by: DANTE AVILA on 11/02/22 1127 Amoxicillin/Potassium Clav (Amox Tr-K Clv 875-125 mg Tab) 875 Mg-125 Mg Tablet, 1 EACH PO BID Prescribed by: DONA GONZALEZ MD on 11/27/22 0041 Aspirin (Aspirin) 81 Mg Tab.chew, 81 MG PO DAILY, (Reported) Entered as Reported by: DANTE AVILA on 11/02/22 1127 Atorvastatin Calcium (Atorvastatin Calcium) 40 Mg Tablet, 40 MG PO DAILY, (Reported) Entered as Reported by: DANTE AVILA on 11/02/22 1127 Hydrocodone/Acetaminophen (Hydrocodone-Acetamin 5-325 mg) 5 Mg-325 Mg Tablet, 1 TAB PO Q4H PRN for PAIN-MODERATE (5-7) Prescribed by: DONA GONZALEZ MD on 11/27/22 0042 Ibuprofen (Ibuprofen) 200 Mg Capsule, 400 MG PO Q8H PRN for PAIN-MILD (1-4), (Reported) Entered as Reported by: DENIA CHAND on 09/24/22 1548 Irbesartan (Irbesartan) 150 Mg Tablet, 150 MG PO DAILY, (Reported) Entered as Reported by: DENIA CHAND on 09/24/22 1548 Review of Systems Review of Systems Constitutional: see HPI; No chills, No fever EENTM: ear pain; No blurred vision, No double vision, No eye pain Respiratory: No cough, No short of breath Cardiovascular: No chest pain, No edema Gastrointestinal: No nausea, No vomiting Genitourinary: no symptoms reported Musculoskeletal: no symptoms reported Skin: No change in color, No lesions, No rash Psychiatric/Neurological: Headache; Denies Weakness Past Cutdqfy-Fkqfdj-Gtlrqr Hx Patient Social History Tobacco Use?: No Substance use?: No Alcohol Use?: No Past Medical History Surgery/Hospitalization HX: [facility]AKER 2022, [facility] Surgeries: Yes Eye Surgery Respiratory: No Cardiac: Yes Hypertension Genitourinary: Yes Kidney Stones Family Medical History Reviewed Nursing Family Hx Heart Disease Physical Exam Vital Signs Vital Signs - First Documented 11/29/22 10:12 Temp 36.7 Pulse 100 Resp 16 B/P (MAP) 164/75 (104) Pulse Ox 98 O2 Delivery Room Air Capillary Refill : Less Than 3 Seconds Height, Weight, BMI Height: '" Weight: 138lbs. oz. [id number]; 19.00 BMI Method:Stated General Appearance: No Apparent Distress, WD/WN HEENT: PERRL/EOMI, Pharynx Normal, Other (Notable lesions noted to the left side of the face, ear, eye, nose or around the mouth. Does have tenderness but does not seem to be reproducible to the left side of the face.) Neck: Non Tender, Supple Respiratory: Lungs Clear, Normal Breath Sounds Cardiovascular: Regular Rate, Rhythm, No Murmur Gastrointestinal: Non Tender, Soft Neurologic/Psychiatric: Alert, Oriented x3 Skin: Normal Color, Warm/Dry Progress/Results/Core Measures Suspected Sepsis SIRS Temperature: Pulse: 100 Respiratory Rate: 16 Laboratory Tests 11/29/22 11:14: White Blood Count 3.8L Blood Pressure 164 /75 Mean: 104 Laboratory Tests 11/29/22 11:14: Creatinine 1.48H, Platelet Count 181, Total Bilirubin 0.6 Results/Orders Lab Results Laboratory Tests Test 11/29/22 11:14 Range/Units White Blood Count 3.8 L 4.3-11.0 10^3/uL Red Blood Count 4.21 3.80-5.11 10^6/uL Hemoglobin 11.5 11.5-16.0 g/dL Hematocrit 36 35-52 % Mean Corpuscular Volume 85 80-99 fL Mean Corpuscular Hemoglobin 27 25-34 pg Mean Corpuscular Hemoglobin Concent 32 32-36 g/dL Red Cell Distribution Width 14.4 10.0-14.5 % Platelet Count 181 130-400 10^3/uL Mean Platelet Volume 9.0 9.0-12.2 fL Immature Granulocyte % (Auto) 0 % Neutrophils (%) (Auto) 59 42-75 % Lymphocytes (%) (Auto) 29 12-44 % Monocytes (%) (Auto) 9 0-12 % Eosinophils (%) (Auto) 3 0-10 % Basophils (%) (Auto) 1 0-10 % Neutrophils # (Auto) 2.2 1.8-7.8 10^3/uL Lymphocytes # (Auto) 1.1 1.0-4.0 10^3/uL Monocytes # (Auto) 0.3 0.0-1.0 10^3/uL Eosinophils # (Auto) 0.1 0.0-0.3 10^3/uL Basophils # (Auto) 0.0 0.0-0.1 10^3/uL Immature Granulocyte # (Auto) 0.0 0.0-0.1 10^3/uL Erythrocyte Sedimentation Rate 11 0-30 MM/HR Sodium Level 141 135-145 MMOL/L Potassium Level 4.2 3.6-5.0 MMOL/L Chloride Level 108 H 98-107 MMOL/L Carbon Dioxide Level 22 21-32 MMOL/L Anion Gap 11 5-14 MMOL/L Blood Urea Nitrogen 29 H 7-18 MG/DL Creatinine 1.48 H 0.60-1.30 MG/DL Estimat Glomerular Filtration Rate 34 BUN/Creatinine Ratio 20 Glucose Level 98 70-105 MG/DL Calcium Level 11.4 H 8.5-10.1 MG/DL Corrected Calcium 11.3 H 8.5-10.1 MG/DL Total Bilirubin 0.6 0.1-1.0 MG/DL Aspartate Amino Transf (AST/SGOT) 19 5-34 U/L Alanine Aminotransferase (ALT/SGPT) 20 0-55 U/L Alkaline Phosphatase 124 40-136 U/L C-Reactive Protein High Sensitivity 0.34 0.00-0.50 MG/DL Total Protein 6.6 6.4-8.2 GM/DL Albumin 4.1 3.2-4.5 GM/DL My Orders Orders - ARGENTINA DOWNS MD Cbc With Automated Diff (11/29/22 11:10) Comprehensive Metabolic Panel (11/29/22 11:10) Hs C Reactive Protein (11/29/22 11:10) Erythrocyte Sedimentation Rate (11/29/22 11:10) Fentanyl Injection (Fentanyl Injection (11/29/22 11:10) Dexamethasone Injection (Dexamethasone (11/29/22 11:15) Ns Iv 500 Ml (Ns Iv 500 Ml) (11/29/22 11:15) Diphenhydramine Injection (Diphenhydram (11/29/22 11:45) Ketorolac Injection (Ketorolac Injection (11/29/22 13:19) Fentanyl Injection (Fentanyl Injection (11/29/22 13:19) Medications Given in ED Current Medications Medications Dose Ordered Sig/Dagoberto Route Start Time Stop Time Status Last Admin Dose Admin Dexamethasone Sodium Phosphate 10 mg ONCE ONCE IV 11/29/22 11:15 11/29/22 11:16 DC 11/29/22 11:20 10 MG Diphenhydramine HCl 25 mg ONCE ONCE IVP 11/29/22 11:45 11/29/22 11:47 DC 11/29/22 12:08 25 MG Sodium Chloride 500 ml @ 0 mls/hr Q0M ONCE IV 11/29/22 11:15 11/29/22 11:16 DC 11/29/22 11:21 500 MLS/HR Vital Signs/I&O 11/29/22 10:12 Temp 36.7 Pulse 100 Resp 16 B/P (MAP) 164/75 (104) Pulse Ox 98 O2 Delivery Room Air Capillary Refill : Less Than 3 Seconds Blood Pressure Mean: 104 Progress Note : Progress Note Seen and evaluated. I did review history from previous visit. We will check basic labs including CBC, CMP, CRP and sed rate. Decadron 10 mg IV and fentanyl 50 mcg IV ordered. Monitor patient. Diagnosis includes general neuralgia versus early shingles outbreak versus sinusitis 1445: Labs reviewed and CRP is low and sed rate is negative. CBC shows low white count but otherwise normal and CMP is grossly normal or consistent with her previous with respect to creatinine. She did receive fentanyl 50 mcg repeat dose as well as Toradol 15 mg IV did receive Benadryl 25 mg earlier for itching of the eye after fentanyl dosing. Overall she is doing much better now and pain is essentially resolved. I do believe this is more consistent with trigeminal neuralgia at this point. We will continue outpatient antibiotics. No indication for temporal arteritis as a diagnosis with low sed rate and low CRP. She feels comfortable going home and family with her does as well. Discharged home with return precautions. Patient and family verbalized understanding of instructions and agreement with plan. Departure Impression Primary Impression: Trigeminal neuralgia of left side of face Disposition: HOME, SELF-CARE Condition: Improved Departure-Patient Inst. Decision time for Depature: 14:48 Referrals: OBINNA NICOLAS MD (PCP/Family) Primary Care Physician Patient Instructions: Trigeminal neuralgia Add. Discharge Instructions: All discharge instructions reviewed with patient and/or family. Voiced understanding. Take medications as directed. Follow-up with your doctor for recheck and further evaluation as scheduled. Return for worse pain, fever, vomiting, vision or balance problems, weakness or other concerns as needed. Continue other antibiotics and medications as previously prescribed. Scripts Hydrocodone/Acetaminophen (Hydrocodone-Acetamin 5-325 mg) 5 Mg-325 Mg Tablet 1 TAB PO Q6H PRN for PAIN-MODERATE (5-7) for 7 Days, #6 TAB 0 Refills Prov: ARGENTINA DOWNS MD 11/29/22 Prednisone (Prednisone) 20 Mg Tab 40 MG PO DAILY, #12 TAB 0 Refills Prov: ARGENTINA DOWNS MD 11/29/22 ARGENTINA DOWNS MD Nov 29, 2022 11:33
[2022-11-29 11:41] LABS: ALBUMIN 4.1 GM/DL (3.2-4.5); BILIRUBIN,TOTAL 0.6 MG/DL (0.1-1.0); CALCIUM 11.4 MG/DL (8.5-10.1); CREATININE SERUM 1.48 MG/DL (0.60-1.30); POTASSIUM 4.2 MMOL/L (3.6-5.0); TOTAL PROTEIN 6.6 GM/DL (6.4-8.2)
[2022-11-29] MEDS ORDERED: diphenhydrAMINE INJ 50 MG/ML VIAL IVP ONE (11:45)
[2022-11-29 11:56] LABS: ERYTHROCYTE SEDIMENTATION RATE 11 MM/HR (0-30)
[2022-11-29] MEDS ORDERED: KETOROLAC INJ 30 MG/ML VIAL IVP STA (13:19)
[2022-11-29] MEDS ORDERED: ACHD5005 PO (14:49)
[2022-11-29] MEDS ORDERED: PRD20T PO (14:49)
[2022-11-29 14:58] VITALS: BP 156/69
== END 2022-11-29 14:58 | disposition home or self-care (01) ==
LOC: EDUNIT# 09:52 → ER 09:53
DX: G50.0 Trigeminal neuralgia (principal)
CPT/HCPCS: 36415; 80053; 85025; 85652; 86141; 99281